=== PATIENT | female | born 1955 | race Caucasian/White ===

== ENCOUNTER 2021-06-15 17:40 | Emergency (ER) | payer BC, OTHER ==
[2021-06-15] MEDS ORDERED: Colchicine 0.6 MG TAB ONE ×2 (19:36→19:38)
== END 2021-06-15 19:45 | disposition home or self-care (01) ==
LOC: MADERS 17:40
DX: M25.832 Other specified joint disorders, left wrist (principal); I10 Essential (primary) hypertension; E78.5 Hyperlipidemia, unspecified

== ENCOUNTER 2021-09-22 11:52 | Emergency (ER) | payer BC ==
[2021-09-22] MEDS ORDERED: Ketorolac Tromethamine 30 MG/ML VIAL ONE (17:51)
== END 2021-09-22 12:54 | disposition home or self-care (01) ==
LOC: MADERS 11:52
DX: S66.912A Strain of unspecified muscle, fascia and tendon at wrist and hand level, left hand, initial encounter (principal); S46.912A Strain of unspecified muscle, fascia and tendon at shoulder and upper arm level, left arm, initial encounter; S63.502A Unspecified sprain of left wrist, initial encounter; S43.402A Unspecified sprain of left shoulder joint, initial encounter; I10 Essential (primary) hypertension; E78.5 Hyperlipidemia, unspecified; M10.9 Gout, unspecified; G62.9 Polyneuropathy, unspecified; W18.2XXA Fall in (into) shower or empty bathtub, initial encounter; Y92.009 Unspecified place in unspecified non-institutional (private) residence as the place of occurrence of the external cause; Z87.891 Personal history of nicotine dependence; Z85.3 Personal history of malignant neoplasm of breast; Z85.42 Personal history of malignant neoplasm of other parts of uterus
CPT/HCPCS: J1885

== ENCOUNTER 2022-12-17 14:29 | Emergency (ER) | payer MEDICARE | END 2022-12-17 15:34 | disposition home or self-care (01) | LOC: MADERS 14:29 | DX: M25.532 Pain in left wrist (principal) ==